=== PATIENT | male | born 1970 | race Caucasian/White ===

== ENCOUNTER 2018-02-28 05:53 | Emergency (ER) | payer OTHER ==
[~2018-02-28] VITALS: Ht 170.2 cm; Wt 71.2 kg
--- NOTE | 2018-02-28 06:08 | NUR ---
BIB FAMILY COMPLAINING OF SUBSTERNAL CHEST PAIN X 3 HOURS AGO. AA/OX4. "I HAVE BAD INDEGESTION AND MIGHT HAVE EATEN SOME BAD [place] [employer] FOOD." NO S/S OF SOB. SKINS PINK, WARM, DRY. NAD. VSS. AWAITING MD ORDERS.
[2018-02-28] MEDS ORDERED: MAG HYDROX/AL HYDROX/SIMETH 30 ML UDC ONE (06:15)
[2018-02-28] MEDS ORDERED: ASPIRIN EC 81 MG TABLET.DR PO ONE (06:16)
--- NOTE | 2018-02-28 06:21 | NUR ---
EKG AND LAB AT BEDSIDE
[2018-02-28] MEDS ORDERED: MAG HYDROX/AL HYDROX/SIMETH 30 ML UDC PO ONE (06:30)
[2018-02-28] MEDS ORDERED: ASPIRIN 81 MG TAB.CHEW PO ONE (06:30)
[2018-02-28 06:31] LABS: BASOPHILS # (AUTO) 0.1 /CMM (0.0-0.2); BASOPHILS % (AUTO) 0.5 % (0.0-2.0); EOSINOPHILS % (AUTO) 1.1 % (0.0-6.0); HEMATOCRIT 42 % (39-51); HEMOGLOBIN 13.6 g/dL (13.5-17.5); LYMPHOCYTES # (AUTO) 2.4 /CMM (0.8-4.8); LYMPHOCYTES % (AUTO) 21.1 % (20.0-44.0); MEAN CORPUSCULAR HEMOGLOBIN 30 PG (26.0-33.0); MEAN CORPUSCULAR HGB CONC 33 g/dl (31.0-36.0); MEAN CORPUSCULAR VOLUME 91 fL (80-96); MONOCYTES # (AUTO) 0.8 /CMM (0.1-1.30); MONOCYTES % (AUTO) 7.1 % (2.0-12.0); NEUTROPHILS # (AUTO) 7.9 /CMM (1.8-8.9); NEUTROPHILS % (AUTO) 70.2 % (43.0-81.0); PLATELET COUNT (AUTO) 235 /CMM (150-450); RDW COEFFICIENT OF VARIATION 12.9 (11.5-15.0); RED BLOOD CELL COUNT(AUTO) 4.57 MIL/uL (4.5-6.0); WHITE BLOOD COUNT (AUTO) 11.3 K/uL (4.3-11.0)
[2018-02-28 06:43] LABS: CALCIUM, SERUM 8.6 mg/dL (8.5-10.1); CARBON DIOXIDE 28 mmol/L (21-32); CHLORIDE 107 mmol/L (98-107); CREATININE 1.2 mg/dL (0.6-1.3); GLUCOSE 103 mg/dL (74-106); SODIUM SERUM 143 mmol/L (136-145); UREA NITROGEN, BLOOD 24 mg/dL (7-18)
[2018-02-28 06:49] LABS: ALANINE AMINOTRANSFERASE 23 U/L (12-78); ALBUMIN 3.3 g/dL (3.4-5.0); ALKALINE PHOSPHATASE 109 U/L (46-116); ASPARTATE AMINOTRANSFERASE 17 U/L (15-37); BILIRUBIN,DIRECT 0.1 mg/dL (0.0-0.2); BILIRUBIN,TOTAL 0.3 mg/dL (0.2-1.0); TOTAL PROTEIN, SERUM 6.6 g/dL (6.4-8.2)
[2018-02-28 06:51] LABS: TROPONIN I < 0.017 ng/mL (0.00-0.056)
--- NOTE | 2018-02-28 06:57 | NUR ---
PT RESTING IN BED COMFORTABLY WITH FAMILY AT BEDSIDE. VSS. NAD. SAFETY MEASURES IN PLACE. CALL LIGHT WITHIN REACH
--- NOTE | 2018-02-28 07:05 | NUR ---
Mary buitrago in [facility] - 02/28/18 at 0707 by [facility] REPORT GIVEN TO LUIGI GROVER.
--- NOTE | 2018-02-28 07:06 | NUR ---
REPORT GIVEN TO ONCOMING SHIFT RN GENER. PT STABLE CONDITION. VSS. NAD.
[2018-02-28 07:22] LABS: CREATINE KINASE MB 0.8 ng/mL (0-3.6)
[2018-02-28 10:59] LABS: CREATINE KINASE MB 0.9 ng/mL (0-3.6)
--- NOTE | 2018-02-28 11:27 | NUR ---
Patient discharged to home in stable condition. Written and verbal after care instructions given. Patient verbalizes understanding of instruction.
[2018-02-28 11:29] VITALS: BP 125/77
== END 2018-02-28 11:30 | disposition home or self-care (01) ==
LOC: ER 05:58
DX: R07.89 Other chest pain (principal); Z87.11 Personal history of peptic ulcer disease
CPT/HCPCS: 36415; 71045-TC; 80048-TC; 80061-TC; 80076-TC; 82550-TC; 82553-TC; 83690-TC; 84484-TC; 85025-TC; 85730-TC; A4606; Z7610